=== PATIENT | male | born 1980 | race Caucasian/White ===

== ENCOUNTER 2024-10-23 22:46 | Emergency (ER) | payer OTHER ==
[~2024-10-23] VITALS: Ht 182.9 cm; Wt 93.0 kg
[2024-10-23] MEDS ORDERED: CEPH500 PO (23:34)
[2024-10-23] MEDS ORDERED: SULTRIDS PO (23:34)
[2024-10-23] MEDS ORDERED: Trimethoprim/Sulfamethoxazole DS Tab PO ONE (23:35)
[2024-10-23] MEDS ORDERED: Cephalexin Monohydrate 500 MG Cap PO ONE (23:35)
== END 2024-10-24 00:48 | disposition home or self-care (01) ==
LOC: ER 22:46
DX: L02.416 Cutaneous abscess of left lower limb (principal); L03.116 Cellulitis of left lower limb; F17.200 Nicotine dependence, unspecified, uncomplicated
CPT/HCPCS: 10060; 99283-25; A9270